=== PATIENT | female | born 1975 | race Caucasian/White ===

== ENCOUNTER 2018-05-15 20:19 | Emergency (ER) | payer OTHER ==
[~2018-05-15] VITALS: Ht 162.6 cm; Wt 81.7 kg
[~2018-05-15 20:19] MED LIST: IBUPROFEN 800800 MG PO; NORCO 5-325 TA1 EACH PO
[2018-05-15 20:31] VITALS: BP 121/82
[2018-05-15] MEDS ORDERED: NORCO 5-325 TA1 EACH PO (21:16)
[2018-05-15] MEDS ORDERED: MOBIC7.5 MG PO (21:16)
[2018-05-15] MEDS ORDERED: AUGMENTIN 875-1 EACH PO (21:16)
== END 2018-05-15 21:32 | disposition home or self-care (01) ==
LOC: M.ERS 20:19
DX: K04.7 Periapical abscess without sinus (principal); H66.93 Otitis media, unspecified, bilateral; J01.00 Acute maxillary sinusitis, unspecified; Z90.89 Acquired absence of other organs